=== PATIENT | male | born 1970 | race Caucasian/White ===

== ENCOUNTER 2018-03-26 12:09 | Day surgery (SDC) | payer BC, OTHER ==
[~2018-03-26] VITALS: Ht 177.8 cm; Wt 107.5 kg
[~2018-03-26 12:09] MED LIST: NEXIUM20 MG PO; SKELAXIN800 MG PO; TOBRADEX EYE DRO5 ML OPTH
--- NOTE | 2018-03-26 13:35 | NUR ---
03/26/18 1335 Bettye Duong 1333-PATIENT ARRIVED TO PACU ON 3L NC PLACED ON 2L. PATIENT AWAKE DROWSY DENIES PAIN OR NAUSEA. ABDOMEN SOFT ENCOURAGED TO PASS GAS. RR EVEN. DOZES BACK TO SLEEP.
--- NOTE | 2018-03-26 15:31 | OR ---
[facility] [address], [place] [address] Signed DATE OF OPERATION: 03/26/2018 SURGEON: Da Aparicio MD PREOPERATIVE DIAGNOSES: 1. Diarrhea alternating with constipation. 2. Family history of celiac disease. 3. Gastroesophageal reflux symptoms, controlled with PPI medication. POSTOPERATIVE DIAGNOSES: 1. Sigmoid diverticular changes. 2. Mild cecal inflammation. 3. Two small rectal polyps. PROCEDURE: 1. Total colonoscopy to cecum with biopsies of ileum, cecum, and rectum. 2. Cold morcellation excision of 2 small rectal polyps. ANESTHESIA: Intravenous sedation, fentanyl 100 mcg, Versed 5 mg. INDICATION: This 48-year-old white man is a patient of Natacha Arguelles PA-C. He is known to me from the past. He has reflux disease, which is well controlled with Nexium. He has complaints of episodic diarrhea and constipation. It is notable he does have family history of celiac disease. He was admitted at this time to undergo colonoscopy to better characterize the source of his symptoms. The risks of bleeding, infection, and perforation were reviewed with him in detail. He understands and wished to proceed. FINDINGS: The prep was adequate. Complete colonoscopy was undertaken to the cecum without question. Although the cecum could not be intubated enough to allow for intubation of the ileum, the ileum was well identified and with care, biopsy forceps extended into the ileum to allow for terminal ileal biopsy. The cecum itself had mild inflammation probably of little clinical significance, but was biopsied never the less. Remaining colon was normal except for two small probably hyperplastic polyps of the rectum, which were excised. Biopsy of the rectum was obtained as well, though it did not have signs of significant inflammation otherwise. Electronically Signed By: DA APARICIO MD 03/26/18 1531 PATIENT NAME: PABLITO HAYWARD OPERATIVE REPORT DATE OF : 72 REPORT #: [id number] PHYSICIAN: DA APARICIO MD PCP: NATACHA GO REPORT IS CONFIDENTIAL AND NOT TO BE RELEASED WITHOUT AUTHORIZATION [facility] [address], [place] [address] Signed DESCRIPTION OF PROCEDURE: The patient was brought to the endoscopy suite and placed in lateral decubitus position given intravenous sedation to the point of slurred speech and nystagmus. Digital rectal examination was normal. An Olympus video colonoscope was passed in the rectum and manipulated throughout the colon ultimately intubating the area of the cecum. The cecum could be well visualized. This could the ileocecal valve. With various manipulations, attempts were made to intubate the ileum, but it was not forthcoming. On that basis, biopsy forceps was gently inserted into the ileum and blind terminal ileal biopsy was undertaken. The scope was withdrawn a bit. Biopsies were then taken of the cecum, which had a mild inflammatory appearance mostly manifest by edema, but no ulceration. The scope was carefully withdrawn from that point and examination throughout showed no sign of abnormality other than a few diverticula of the sigmoid. The rectum was visualized by retroflexed view and showed two small hyperplastic appearing polyps. They were both excised with cold morcellation technique. Additional biopsies taken of the rectum to assess for inflammatory bowel disease, though it did not look likely. The scope was removed and the patient was taken to recovery room in good condition. CONCLUDING DIAGNOSES: Diverticulosis and two small hyperplastic polyps of rectum. Mild inflammation of cecum uncertainty regarding the ilium proper. PLAN: We will recommend Citrucel 1 tablespoon daily until in that time, which the pathology report becomes available. We will see him back in the office in about 4 weeks or so. MD KIRSTEN Frazier/EMMANUELL /[id number] cc: Natacha Arguelles PA-C Copies: Electronically Signed By: DA APARICIO MD 03/26/18 1531 PATIENT NAME: PABLITO HAYWARD OPERATIVE REPORT DATE OF : 72 REPORT #: [id number] PHYSICIAN: DA APARICIO MD PCP: NATACHA GO REPORT IS CONFIDENTIAL AND NOT TO BE RELEASED WITHOUT AUTHORIZATION [address] [place] [address] Signed ~ Electronically Signed By: DA APARICIO MD 03/26/18 1531 PATIENT NAME: PABLITO HAYWARD OPERATIVE REPORT DATE OF : 72 REPORT #: [id number] PHYSICIAN: DA APARICIO MD PCP: NATACHA GO REPORT IS CONFIDENTIAL AND NOT TO BE RELEASED WITHOUT AUTHORIZATION
== END 2018-03-26 14:20 | disposition home or self-care (01) ==
LOC: DS 12:09 → OPS 12:09 → DS 13:00 → OPS 14:20
PROVIDERS: Surgery
PROC: 0DBP8ZX Excision of Rectum, Via Natural or Artificial Opening Endoscopic, Diagnostic (ICD-10-PCS; 2018-03-26)
PROC: 0DBB8ZX Excision of Ileum, Via Natural or Artificial Opening Endoscopic, Diagnostic (ICD-10-PCS; 2018-03-26)
PROC: 0DBP8ZZ Excision of Rectum, Via Natural or Artificial Opening Endoscopic (ICD-10-PCS; 2018-03-26)
PROC: 0DBH8ZX Excision of Cecum, Via Natural or Artificial Opening Endoscopic, Diagnostic (ICD-10-PCS; principal; 2018-03-26 13:00)
DX: K62.1 Rectal polyp (principal); K57.30 Diverticulosis of large intestine without perforation or abscess without bleeding; K37 Unspecified appendicitis; K52.9 Noninfective gastroenteritis and colitis, unspecified; K21.0 Gastro-esophageal reflux disease with esophagitis; Z88.0 Allergy status to penicillin; Z88.5 Allergy status to narcotic agent; Z79.899 Other long term (current) drug therapy; Z98.890 Other specified postprocedural states
CPT/HCPCS: 99153; G0500; J2250; J3010; J7120